=== PATIENT | female | born 1970 | race Caucasian/White ===

== ENCOUNTER → 2016-06-11 | Outpatient (CLI) | payer OTHER ==
[~2016-06-11] MED LIST: ALPR.5T PO; ASCO-262 PO; ASCO1TAB22 PO; DIAZ-345 PO; DOMPERIDONE; DOXY25TA43 PO; FLC100T1 PO; FURO40TA4 PO; GFN600TCR PO; IPRA0.2S18 IH; LEVA1.25 IH; LEVO750T6; MAGN100T3 PO; MAGN400C PO; MECL25TA56 PO; METF-380 PO; METFORMIN/GLYBURIDE; METH4TAB PO; MULT1CAP48 PO; NF-ADDXR30 PO; NFNEB10T PO; OMEG1CAP51 PO; OMEP20TA33 PO; ONDA8TAB9 PO; POTA10CA43 PO; PRAS1TAB3 PO; SCR1T1 PO; SITA1TAB6 PO; SITA50TA PO; SPIR50TA2 PO; [UNRECOGNIZED DRUG - CODE] PO
--- NOTE | 2016-06-14 11:32 | Diagnostic Imaging Report ---
EXAMINATION: Bilateral screening mammogram with a Computer Aided Detection (CAD) system. INDICATION: Screening. PERSONAL HISTORY: No current complaints stated on the questionnaire. COMPARISON: 12/01/2014. FINDINGS: The breasts are composed of scattered fibroglandular densities. There are occasional benign-appearing calcifications seen. There is a circumscribed nodule seen in the outer aspect of the right breast, better seen on the CC projection, measuring 4 mm in size. It was seen previously but has increased in size. The left breast demonstrates no change from the previous study. IMPRESSION: An enlarging 4 mm lateral right breast nodule has increased in size from the prior exam. The smooth margins are suggestive of a cyst or intramammary lymph node. Ultrasound correlation is recommended. ACR BI-RADS Category 0: Incomplete. (Needs additional imaging evaluation). Result letter will be mailed to the patient. Note: At least 10% of breast cancer is not imaged by mammography. Dictated by: Dictated on workstation # [id number]
== END ==
LOC: RAD 13:20
PROVIDERS: ATTEND Obstetrics & Gynecology
DX: Z12.31 Encounter for screening mammogram for malignant neoplasm of breast (principal)
CPT/HCPCS: 77067

== ENCOUNTER → 2016-06-21 | Outpatient (CLI) | payer OTHER ==
--- OUTSIDE RECORDS SUMMARY | 2016-06-21 08:18 | XMS REPORT | Continuity of Care Document ---
Demographics Preferred Language Unknown Marital Status Unknown Judaism Affiliation Unknown Race Unknown Ethnic Group Unknown Author Author [facility] Address Unknown Phone Unavailable Allergies Active Description Code Type Severity Reaction Onset Reported/Identified Relationship to Patient Clinical Status Yes No Known Drug Allergies [id number] Drug Allergy Unknown N/ A 05/10/2007 Medications Problems Date Dx Coded Attending Type Code Diagnosis Diagnosed By 05/13/2012 V04.81 FLU DX (3 YRS AND ABOVE, IM) 02/13/2015 SHANNON DELATORRE, CINDI Cid Ot 535.50 02/14/2015 SHANNON DELATORRE, CINDI Cid Ot 535.50 03/05/2015 SIGIFREDO DYER MD Ot R74.0 05/20/2015 ERICA YOO APRN Ot K52.9 NONINFECTIVE GASTROENTERITIS AND COLITIS 05/20/2015 ERICA YOO APRN Ot K76.0 FATTY (CHANGE OF) LIVER, NOT ELSEWHERE C 07/10/2015 JOHN DELATORRE, SASCHA Bishop Ot K64.2 THIRD DEGREE HEMORRHOIDS 07/28/2015 YULISSA REINA PICKLE CUTTER Ot E01.0 07/28/2015 SIGIFREDO DYER MD Ot Z51.81 07/28/2015 SIGIFREDO DYER MD Ot Z79.899 08/13/2015 YULISSA REINA PICKLE CUTTER Ot E01.0 08/13/2015 SIGIFREDO DYER MD Ot Z51.81 08/13/2015 SIGIFREDO DYER MD Ot Z79.899 08/20/2015 YULISSA REINA PICKLE CUTTER Ot R20.2 08/20/2015 YULISSA REINA PICKLE CUTTER Ot R20.2 08/27/2015 YULISSA REINA PICKLE CUTTER Ot R20.2 PARESTHESIA OF SKIN 06/11/2016 CINDI ORTEGA MD Ot 535.50 UNSP GASTRITIS GASTRODUODENITIS W/O ME 06/11/2016 SIGIFREDO DYER MD Ot R74.0 NONSPEC ELEV OF LEVELS OF TRANSAMNS LA 06/11/2016 SIGIFREDO DYER MD Ot K83.4 SPASM OF SPHINCTER OF ODDI 06/11/2016 YULISSA REINA Ot 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 Visit Date/Time Discharge Status Pt. Type Provider Facility Loc./Unit Complaint [id number] 05/13/2012 13:11:00 05/13/2012 23: 59:59 CLS Outpatient
--- NOTE | 2016-06-21 20:32 | Diagnostic Imaging Report ---
Right breast ultrasound. INDICATION: Asymmetry along the outer aspect of the right breast. FINDINGS: At 9:30 o'clock position 8 cm from the nipple, there is a hypoechoic lesion measuring 5 x 4 x 4 mm. It has features suggestive of an intramammary lymph node with central hyperechogenicity likely related to the fatty hilum. IMPRESSION: 5 mm nodule appears to correspond with mammographic abnormality at 9:30 o'clock position, 8 cm from the nipple is likely related to an intramammary lymph node. A six-month followup ultrasound is recommended to ensure stability. ACR BI-RADS Category 3: Probably benign findings. Dictated by: Dictated on workstation # [id number]
== END ==
LOC: RAD 08:15
PROVIDERS: ATTEND Obstetrics & Gynecology
DX: R92.2 Inconclusive mammogram (principal); N63 Unspecified lump in breast

== ENCOUNTER → 2016-07-01 | Outpatient (CLI) | payer OTHER ==
[~2016-07-01] VITALS: Ht 162.6 cm; Wt 90.7 kg
[~2016-07-01] MED LIST changes: +LACTATED RINGERS 2,000 ML IV SCH; +ONDANSETRON 4 MG/2 ML (SDV) Z0FRAN IV ONE
--- OUTSIDE RECORDS SUMMARY | 2016-07-01 12:24 | XMS REPORT | Continuity of Care Document ---
Demographics Preferred Language Unknown Marital Status Unknown Anabaptism Affiliation Unknown Race Unknown Ethnic Group Unknown Author Author [facility] Address Unknown Phone Unavailable Allergies Active Description Code Type Severity Reaction Onset Reported/Identified Relationship to Patient Clinical Status Yes No Known Drug Allergies [id number] Drug Allergy Unknown N/ A 05/10/2007 Medications [...] K64.2 THIRD DEGREE HEMORRHOIDS 07/28/2015 YULISSA REINA SHELLFISH PROCESSING MACHINE TENDER Ot E01.0 07/28/2015 SIGIFREDO DYER MD Ot Z51.81 07/28/2015 SIGIFREDO DYER MD Ot Z79.899 08/13/2015 YULISSA REINA SHELLFISH PROCESSING MACHINE TENDER Ot E01.0 08/13/2015 SIGIFREDO DYER MD Ot Z51.81 08/13/2015 SIGIFREDO DYER MD Ot Z79.899 08/20/2015 YULISSA REINA SHELLFISH PROCESSING MACHINE TENDER Ot R20.2 08/20/2015 YULISSA REINA SHELLFISH PROCESSING MACHINE TENDER Ot R20.2 08/27/2015 YULISSA REINA SHELLFISH PROCESSING MACHINE TENDER Ot R20.2 PARESTHESIA OF SKIN 06/11/2016 CINDI ORTEGA MD Ot 535.50 UNSP GASTRITIS GASTRODUODENITIS W/O ME 06/11/2016 SIGIFREDO DYER MD Ot R74.0 NONSPEC ELEV OF LEVELS OF TRANSAMNS LA 06/11/2016 SIGIFREDO YDER MD Ot K83.4 SPASM OF SPHINCTER OF ODDI 06/11/2016 YULISSA REINA Ot 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 06/11/2016 SIGIFREDO DYER MD Ot Z51.81 ENCOUNTER FOR THERAPEUTIC DRUG LEVEL MON 06/11/2016 SIGIFREDO DYER MD Ot Z79.899 OTHER RETIREMENT (CURRENT) DRUG THERAPY 06/11/2016 YULISSA REINA Ot R20.2 PARESTHESIA OF SKIN 06/11/2016 YULISSA REINA Ot K76.0 FATTY (CHANGE OF) LIVER, NOT ELSEWHERE C 06/11/2016 YULISSA REINA Ot R74.8 ABNORMAL LEVELS OF OTHER SERUM ENZYMES 06/14/2016 NEIL DELGADO MD, Ot Z12.31 ENCNTR SCREEN MAMMOGRAM FOR MALIGNANT NE 06/14/2016 NEIL DELGADO MD, Ot Z12.31 ENCNTR SCREEN MAMMOGRAM FOR MALIGNANT NE 06/22/2016 NEIL DELGADO MD Ot N63 UNSPECIFIED LUMP IN BREAST 06/22/2016 NEIL DELGADO MD, Ot R92.2 INCONCLUSIVE MAMMOGRAM 06/23/2016 NEIL DELGADO MD, Ot Z12.31 ENCNTR SCREEN MAMMOGRAM FOR MALIGNANT NE Procedures Results Encounters ACCT No. Visit Date/Time Discharge Status Pt. Type Provider Facility Loc./Unit Complaint [id number] 05/13/2012 13:11:00 05/13/2012 23: 59:59 CLS Outpatient
[2016-07-01 12:42] LABS: RED BLOOD COUNT 4.42 10^6/uL (4.35-5.85); WHITE BLOOD COUNT 8.5 10^3/uL (4.3-11.0)
--- NOTE | 2016-07-01 12:54 | Diagnostic Imaging Report ---
INDICATION: Gastroparesis. FINDINGS: Stomach is not distended. Small bowel is not dilated. The colon shows normal stool and gas pattern with no evidence of constipation. Surgical clips are in the biliary fossa. No pathologic calcification. IMPRESSION: Normal KUB. Dictated by: Dictated on workstation # [id number]
[2016-07-01 13:04] LABS: ALANINE AMINOTRANSFERASE 82 U/L (0-55); ALBUMIN 4.1 G/DL (3.2-4.5); AMYLASE 22 U/L (25-125); ANION GAP 15 MMOL/L (5-14); ASPARTATE AMINO TRANSFERASE 52 U/L (5-34); BLOOD UREA NITROGEN 13 MG/DL (7-18); BUN/CREATININE RATIO 13; CALCIUM 8.5 MG/DL (8.5-10.1); CARBON DIOXIDE 18 MMOL/L (21-32); CHLORIDE 101 MMOL/L (98-107); CREATININE SERUM 0.99 MG/DL (0.60-1.30); GFR ESTIMATED > 60; GLUCOSE 398 MG/DL (70-105); LIPASE 33 U/L (8-78); POTASSIUM 3.7 MMOL/L (3.6-5.0); SODIUM 134 MMOL/L (135-145); TOTAL PROTEIN 7.2 G/DL (6.4-8.2)
[2016-07-01 13:52] VITALS: BP 129/88
[2016-07-01 18:10] VITALS: BP 129/88
== END ==
LOC: RAD 12:19
PROVIDERS: ATTEND Internal Medicine
DX: K31.84 Gastroparesis (principal); E86.0 Dehydration; R10.13 Epigastric pain
CPT/HCPCS: 36415; 74020; 80053; 82150; 83690; 85027; 96360; 96361; 96374

== ENCOUNTER → 2016-12-07 | Outpatient (CLI) | payer OTHER ==
[~2016-12-07] VITALS: Ht 162.6 cm; Wt 90.3 kg
[~2016-12-07] MED LIST changes: +CATHETER FLUSH 10 ML SYR IV PRN; +KETOROLAC 30 MG/ML VIAL IV ONE; +KETOROLAC 30 MG/ML VIAL ONE; +LACTATED RINGERS 1,000 ML IV ONE; -LACTATED RINGERS 2,000 ML IV SCH; +ONDANSETRON 4 MG/2 ML (SDV) Z0FRAN ONE; +cefTRIAXone 1 GM/NS 50 ML IVPB IV ONE
[2016-12-07 12:35] VITALS: BP 126/78
[2016-12-07] MEDS: MAGNESIUM 1 GM/D5W 100 ML IVPB IV SCH ×2 (13:10→14:00)
== END ==
LOC: SDC 10:56
PROVIDERS: ATTEND Internal Medicine
DX: E86.0 Dehydration (principal); J01.90 Acute sinusitis, unspecified; R11.0 Nausea; E83.42 Hypomagnesemia
CPT/HCPCS: 96361; 96365; 96366; 96367; 96375

== ENCOUNTER → 2016-12-28 | Outpatient (CLI) | payer OTHER ==
[~2016-12-28] MED LIST changes: -CATHETER FLUSH 10 ML SYR IV PRN; -KETOROLAC 30 MG/ML VIAL IV ONE; -KETOROLAC 30 MG/ML VIAL ONE; -LACTATED RINGERS 1,000 ML IV ONE; -ONDANSETRON 4 MG/2 ML (SDV) Z0FRAN IV ONE; -ONDANSETRON 4 MG/2 ML (SDV) Z0FRAN ONE; -cefTRIAXone 1 GM/NS 50 ML IVPB IV ONE
--- NOTE | 2016-12-28 20:27 | Diagnostic Imaging Report ---
EXAMINATION: Ultrasound of the right breast limited. INDICATION: Follow-up exam. FINDINGS: The baseline screening mammogram performed on 06/11/2016 suggested a 4 mm enlarging nodule in the lateral aspect of the right breast. This nodule had a generally benign mammographic appearance. The ultrasound exam performed on 06/21/2016 indicated that there was a 5 x 4 x 4 mm hypoechoic nodule with a hyperechoic center in this region. This finding had the appearance of a benign lymph node. On this exam, the suspected lymph node is again evident and no different. I do feel that this is a benign process; however, I would recommend that this are be reevaluated by ultrasound when the patient has her annual bilateral mammogram in June of 2017. IMPRESSION: 1. The suspected lymph node in the lateral aspect of the right breast seen previously is again evident and does not appear to have changed significantly. Recommendations as above. 2. There is no evidence of malignancy. ACR BI-RADS Category 3: Probably benign findings. Dictated by: Dictated on workstation # [id number]
== END ==
LOC: RAD 10:49
PROVIDERS: ATTEND Obstetrics & Gynecology
DX: R59.0 Localized enlarged lymph nodes (principal)

== ENCOUNTER → 2017-04-22 | Outpatient (CLI) | payer OTHER ==
[~2017-04-22] MED LIST changes: +CATHETER FLUSH 10 ML SYR IV PRN
[2017-04-22 08:07] VITALS: BP 130/85
[2017-04-22 08:23] VITALS: BP 153/117
[2017-04-22 08:26] VITALS: BP 169/97
[2017-04-22 08:28] VITALS: BP 165/96
[2017-04-22 08:30] VITALS: BP 140/100
--- NOTE | 2017-04-22 21:23 | STRESS TEST ---
DATE OF SERVICE: 04/22/2017 MYOCARDIAL PERFUSION IMAGING PRIMARY PHYSICIAN: Dr. Clemons. DIAGNOSIS: Chest pain. PROCEDURE DETAILS: Please review Dr. Cleomns's note on the stress testing. Myoview 9.89 mCi were given for rest imaging and 30.0 mCi of Myoview were given for stress imaging. TID was 0.73 and EF of 59%. No wall motion abnormalities. Normal perfusion during stress and rest imaging. IMPRESSION/CONCLUSION: Normal perfusion during rest and stress imaging. There is no evidence of infarct or ischemia. Job ID: [id number] DocumentID: [id number] Dictated Date: 04/22/2017 16:15:56 Sand Plant Attendant Date: 04/22/2017 19:53:31 Dictated By: STEPHEN CORONADO MD
== END ==
LOC: CARD 07:14
PROVIDERS: ATTEND Internal Medicine
DX: R07.9 Chest pain, unspecified (principal)
CPT/HCPCS: 78452; 93017

== ENCOUNTER → 2017-08-18 | Outpatient (CLI) | payer OTHER ==
[~2017-08-18] MED LIST changes: -CATHETER FLUSH 10 ML SYR IV PRN
--- NOTE | 2017-08-18 11:48 | Diagnostic Imaging Report ---
INDICATION: Right breast nodule. Patient presents for followup. Correlation is made with prior right breast ultrasound from 12/28/2016 and 06/21/2016. Sonographic interrogation of the outer right breast was performed. Previously noted circumscribed hypoechoic nodule at the 9:30 location 8 cm from the nipple is again noted measuring 5 mm x 4 mm x 6 mm. This is stable. This has benign features. No internal vascularity is seen. No additional lesion is identified. IMPRESSION: Stable circumscribed hypoechoic nodule 9:30 location of the right breast when compared with examinations dating back to 06/21/2016. 14 months of stability is reassuring. Even so, followup right breast ultrasound in 6 months recommended to show continued stability. BI-RADS category 3 ACR BI-RADS Category 3: Probably benign findings. Dictated by: Dictated on workstation # [id number]
--- NOTE | 2017-08-18 13:13 | Diagnostic Imaging Report ---
INDICATION: Right breast nodule. Correlation is made with prior mammogram from 06/11/2016. The current study was also evaluated with a Computer Aided Detection (CAD) system. Scattered fibronodular densities are identified bilaterally. Nodular density outer right breast appears stable. This was stable on ultrasound performed earlier the same day. No new mass or malignant appearing microcalcifications are identified. The axillae are unremarkable. IMPRESSION: BI-RADS category 3 Stable bilateral mammograms. Patient is scheduled to undergo six-month followup ultrasound of the right breast to confirm stability of the well-defined nodule in the outer aspect. ACR BI-RADS Category 3: Probably benign findings. Result letter will be mailed to the patient. Note: At least 10% of breast cancer is not imaged by mammography. Dictated by: Dictated on workstation # [id number]
== END ==
LOC: RAD 10:49
PROVIDERS: ATTEND Obstetrics & Gynecology
DX: N63.11 Unspecified lump in the right breast, upper outer quadrant (principal)
CPT/HCPCS: 77067

== ENCOUNTER → 2018-02-09 | Outpatient (CLI) | payer OTHER ==
[~2018-02-09] MED LIST changes: -SPIR50TA2 PO; +SPIR50TA4 PO
--- NOTE | 2018-02-09 18:58 | Diagnostic Imaging Report ---
INDICATION: Six-month followup of right breast nodule. COMPARISON: Correlation is made with prior right breast ultrasound from 08/18/2017. EXAMINATION: Sonographic interrogation of the right breast at the 9:30 location, 8 cm from the nipple, was performed. FINDINGS: There is a circumscribed hypoechoic nodule at this location, measuring 6 mm x 4 mm x 5 mm, stable when compared to the prior exam. No new mass is seen. IMPRESSION: BI-RADS 3. Stable circumscribed hypoechoic nodule at the 9:30 location of the right breast. This now shows approximately 20 months of stability. One final sonographic followup in six months is recommended to confirm stability. Dictated by: Dictated on workstation # [id number]
== END ==
LOC: RAD 14:06
PROVIDERS: ATTEND Obstetrics & Gynecology
DX: N63.11 Unspecified lump in the right breast, upper outer quadrant (principal); R92.8 Other abnormal and inconclusive findings on diagnostic imaging of breast

== ENCOUNTER → 2018-08-17 | Outpatient (CLI) | payer OTHER ==
--- NOTE | 2018-08-17 20:33 | Diagnostic Imaging Report ---
EXAMINATION: Diagnostic mammogram. The current study was also evaluated with a Computer Aided Detection (CAD) system. CLINICAL INDICATION: Six-month follow-up. Comparison made with prior examination from 08/18/2017 back through 11/30/2007. FINDINGS: There are scattered fibroglandular densities bilaterally. There is an unchanged nodular density in the lateral right breast. There are a few benign-type calcifications. There is no new dominant mass, spiculated lesion, or suspicious calcification identified. The skin, nipples, and axillae are unremarkable. Ultrasound was repeated of the nodule in the right breast which was unchanged. IMPRESSION: Benign. ACR BI-RADS Category 2: Benign findings. Result letter will be mailed to the patient. Note: At least 10% of breast cancer is not imaged by mammography. Dictated by: Dictated on workstation # [id number]
--- NOTE | 2018-08-17 20:40 | Diagnostic Imaging Report ---
INDICATION: Six-month follow-up. Comparison made with prior examination from 02/09/2018. TECHNIQUE: Multiple real-time grayscale images were obtained over the right breast in various projections. FINDINGS: In the 9:30 position of the right breast 8 cm from the nipple, there is an unchanged hypoechoic density measuring 0.6 x 0.4 x 0.5 cm. Additionally, in the 10 o'clock position, there is a tiny 3 mm cyst. IMPRESSION: Benign. Stable hypoechoic density in the 9:30 position of the right breast. This documents two-year stability. 3 mm benign-appearing cyst in the 10:30 position of the right breast. ACR BI-RADS Category 2: Benign findings. Dictated by: Dictated on workstation # [id number]
== END ==
LOC: RAD 13:14
PROVIDERS: ATTEND Obstetrics & Gynecology
DX: N63.11 Unspecified lump in the right breast, upper outer quadrant (principal)
CPT/HCPCS: 77066

== ENCOUNTER → 2019-10-23 | Outpatient (CLI) | payer OTHER ==
--- NOTE | 2019-10-23 14:50 | Diagnostic Imaging Report ---
INDICATION: Routine screening. COMPARISON is made with prior mammograms from 08/17/2018 and 08/18/2017. 2-D and 3-D bilateral screening mammography was performed with CAD. Scattered fibroglandular densities are identified bilaterally. Circumscribed nodule in the upper outer right breast is stable. No new mass or malignant appearing microcalcifications are identified. Axillae are unremarkable. IMPRESSION: BI-RADS Category 2 No mammographic features suspicious for malignancy are identified. ACR BI-RADS Category 2: Benign findings. Result letter will be mailed to the patient. Note: At least 10% of breast cancer is not imaged by mammography. Dictated by: Dictated on workstation # [id number]
== END ==
LOC: RAD 12:23
PROVIDERS: ATTEND Obstetrics & Gynecology
DX: Z12.31 Encounter for screening mammogram for malignant neoplasm of breast (principal)
CPT/HCPCS: 77063; 77067

== ENCOUNTER → 2020-10-23 | Outpatient (CLI) | payer OTHER ==
--- NOTE | 2020-10-24 08:48 | Diagnostic Imaging Report ---
INDICATION: Routine screening. COMPARISON is made with prior mammograms from 10/23/2019 and 08/17/2018. 2-D and 3-D bilateral screening mammography was performed with CAD. Scattered fibroglandular densities are identified bilaterally. A benign nodule in the lateral right breast is stable. No new mass or malignant appearing microcalcifications are identified. There are occasional benign calcifications noted. Axillae are unremarkable. IMPRESSION: BI-RADS Category 2 No mammographic features suspicious for malignancy are identified. ACR BI-RADS Category 2: Benign findings. Result letter will be mailed to the patient. Note: At least 10% of breast cancer is not imaged by mammography. Dictated by: Dictated on workstation # [id number]
== END ==
LOC: RAD 14:48
PROVIDERS: ATTEND Obstetrics & Gynecology
DX: Z12.31 Encounter for screening mammogram for malignant neoplasm of breast (principal)
CPT/HCPCS: 77063; 77067

== ENCOUNTER 2021-05-07 05:28 | Outpatient (RCR) | payer OTHER ==
[~2021-05-07] VITALS: Ht 162.6 cm; Wt 97.4 kg
[~2021-05-07 05:28] MED LIST changes: +ALPR1TAB7 PO; +BUSP5TAB59 PO; +BUTA-235 PO; +DAPA5TAB PO; +DEXT10CA PO; +EZET10TA49 PO; +INSU100I32 SQ; +METF-399 PO; +NORT25CA PO; +PROP20TA5 PO; +SEMA3TAB PO; +SULF-11 PO; +THYR60TA27 PO; +TRIA1CAP4 PO
== END 2021-05-07 08:59 | disposition home or self-care (01) ==
LOC: PREOP 05:28
PROVIDERS: ATTEND Surgery
DX: Z01.812 Encounter for preprocedural laboratory examination (principal); K62.5 Hemorrhage of anus and rectum; Z20.822 Contact with and (suspected) exposure to COVID-19
CPT/HCPCS: 87635

== ENCOUNTER → 2021-05-11 | Day surgery (SDC) | payer OTHER ==
[~2021-05-11] VITALS: Ht 162.6 cm; Wt 79.4 kg
[~2021-05-11] MED LIST changes: +HURRICAINE EXT TUBE (BENZOCAINE) XX PRN; +LACTATED RINGERS 1,000 ML IV ONE; +LACTATED RINGERS 1,000 ML IV STA; +MIDAZOLAM 2 MG/2 ML (VERSED) VIAL ONE; +PROPOFOL INJECTION 50 ML IV ONE
[2021-05-11 08:15] VITALS: BP 126/89
--- NOTE | 2021-05-11 08:58 | Progress Note-Pre Operative ---
Pre-Operative Progress Note H&P Reviewed The H&P was reviewed, patient examined and no changes noted. Time Seen by Provider: 08:57 Date H&P Reviewed: May 11, 2021 Time H&P Reviewed: 08:57 Pre-Operative Diagnosis: Rectal bleed, Chronic Gastritis DAVID HERNANDEZ DO May 11, 2021 08:58
[2021-05-11 10:15] VITALS: BP 109/63
[2021-05-11 10:20] VITALS: BP 103/87
--- NOTE | 2021-05-11 10:27 | Anesthesia-General Post-Op ---
MAC Patient Condition Mental Status/LOC: Same as Preop Cardiovascular: Satisfactory Nausea/Vomiting: Absent Respiratory: Satisfactory Pain: Controlled Complications: Absent Post Op Complications Complications None Follow Up Care/Instructions Patient Instructions None needed. Anesthesiology Discharge Order Discharge Order Patient is doing well, no complaints, stable vital signs, no apparent adverse anesthesia problems. No complications reported per nursing. VALENTIN ASHTON CRNA May 11, 2021 10:27
--- NOTE | 2021-05-11 10:29 | Progress Note-Post Operative ---
Post-Operative Progess Note Surgeon (s)/Civil Engineering Specialist (s) Surgeon DAVID HERNANDEZ DO Civil Engineering Specialist: Sanford Mccord, MSITahir Pre-Operative Diagnosis Rectal bleed, Chronic Gastritis Post-Operative Diagnosis Gsatritis Esophagitis Polyp int and ext hemorrhoids Procedure & Operative Findings Date of Procedure 05/11/21 Procedure Performed/Findings EGD with biopsy Colon with snare polypectomy PROCEDURE NOTE: After informed consent was obtained, the patient was brought to the endoscopy suite, placed in bed in left lateral decubitus position. She was administered IV sedation by the LANDSCAPE ARCHITECTURE TEACHER who then monitored vitals the entire time, heart rate, blood pressure and pulse ox and the scope was inserted down the mouth through the esophagus into the stomach. On the way down, noted some mild esophagitis, took a picture, pushed into the stomach, pushed past the antrum into the duodenum. Duodenum looked good. Pulled back and did a biopsy of antrum, then retroflexed the scope, did not see a hiatal hernia and then pulled the scope into the GE junction and did a biopsy of the GE junction. Pushed the scope back into the stomach, suctioned all the air out of the stomach. At this point pulled the scope up the esophagus and out the mouth. Switched camera, switched gloves, went down below and started the colonoscopy. Pushed all the way into about 140 cm to get all the way to cecum. There was a large polyp right next to the ileocecal valve and took a picture. Elected to do a hot snare to completely remove the polyp, tryied to take a picture of the appendiceal orifice. However, the polyp and stool blocked visualization. Had to use a net to grab the polyp and then slowly withdrew the scope, insufflating to look circumferentially at the ray starting in the cecum, up the ascending colon to the hepatic flexure, then down the transverse colon, splenic flexure, into the descending colon, down into the sigmoid and finally into the rectum, retroflexed in the rectal vault, saw some minimal internal hemorrhoids and took a picture of this. Also took a picture of the external hemorrhoidal skin as well. The patient tolerated the procedure and she recovered in the endoscopy suite. Anesthesia Type IV sedation by LANDSCAPE ARCHITECTURE TEACHER Estimated Blood Loss Estimated blood loss (mL): scant Specimens/Packing Specimens Removed antral bx body of stomach bx GE jxn bx Cecal polyp DAVID HERNANDEZ DO May 11, 2021 10:29
--- NOTE | 2021-05-11 10:30 | Endoscopy Discharge Instruct ---
Endo Procedure/Findings Findings 1.: Gastritis 2.: Polyp 3.: Internal Hemorrhoids 4.: Other Findings (external hemorrhoidal skin) Discharge Instructions - Activity: You might feel a little sleepy until tomorrow. This is due to the medicine you received to relax you. Until tomorrow, you should: NOT drive a car, operate machinery or power tools. NOT drink any alcoholic beverages. NOT make any important decisions or sign importortant papers. Do not return to work until tomorrow, unless otherwise instructed. Resume previous activities tomorrow. Diet: Start by taking liquids. If you tolerate liquids, advance to solid food. 1.: Colonscopy in 3 years 2.: EGD in 3 years Notify Physician - If you experience excessive bleeding, unusual abdominal pain, fever, or chest pain, contact your doctor immediately. DAVID HERNANDEZ DO May 11, 2021 10:30
[2021-05-11 10:51] VITALS: BP 121/83
== END ==
LOC: ENDO 07:55
PROVIDERS: ATTEND Surgery
DX: K29.50 Unspecified chronic gastritis without bleeding (principal); K21.00 Gastro-esophageal reflux disease with esophagitis, without bleeding; D12.0 Benign neoplasm of cecum; K64.4 Residual hemorrhoidal skin tags; K62.5 Hemorrhage of anus and rectum; K64.8 Other hemorrhoids; R63.4 Abnormal weight loss; E11.9 Type 2 diabetes mellitus without complications; F32.A Depression, unspecified; F90.9 Attention-deficit hyperactivity disorder, unspecified type; Z79.891 Long term (current) use of opiate analgesic; Z79.899 Other long term (current) drug therapy; Z90.49 Acquired absence of other specified parts of digestive tract; Z79.84 Long term (current) use of oral hypoglycemic drugs; Z80.9 Family history of malignant neoplasm, unspecified
CPT/HCPCS: 84703

== ENCOUNTER → 2021-11-24 | Outpatient (CLI) | payer OTHER ==
[~2021-11-24] MED LIST changes: -HURRICAINE EXT TUBE (BENZOCAINE) XX PRN; -LACTATED RINGERS 1,000 ML IV ONE; -LACTATED RINGERS 1,000 ML IV STA; -MIDAZOLAM 2 MG/2 ML (VERSED) VIAL ONE; -PROPOFOL INJECTION 50 ML IV ONE; -SEMA3TAB PO; +SEMA3TAB4 PO; -TRIA1CAP4 PO; +TRIA1CAP84 PO
--- NOTE | 2021-11-24 13:04 | Diagnostic Imaging Report ---
INDICATION: Routine screening. COMPARISON: 10/23/2020 and 10/23/2019. TECHNIQUE: 2D and 3D bilateral screening mammography was performed with CAD. FINDINGS: Scattered fibroglandular densities are identified bilaterally. A benign nodule in the upper outer right breast is stable. No new mass or malignant-appearing microcalcifications are seen. The axillae are unremarkable. IMPRESSION: No mammographic features suspicious for malignancy are identified. ACR BI-RADS Category 2: Benign findings. Result letter will be mailed to the patient. Note: At least 10% of breast cancer is not imaged by mammography. Dictated by: Dictated on workstation # [id number]
== END ==
LOC: RAD 09:15
PROVIDERS: ATTEND Obstetrics & Gynecology
DX: Z12.31 Encounter for screening mammogram for malignant neoplasm of breast (principal)
CPT/HCPCS: 77063; 77067

== ENCOUNTER → 2022-05-04 | Outpatient (CLI) | payer OTHER ==
--- NOTE | 2022-05-04 13:12 | Diagnostic Imaging Report ---
INDICATION: Postmenopausal screening COMPARISON: None FINDINGS: AP Spine L1-L4: [BMD (g/cm2): 1.441] [T-Score: 2.0] [Z-Score: 2.1] [BMD Previous: NA] [BMD % Change: NA] LT Hip Neck: [BMD (g/cm2): 1.031] [T-Score: -0.1] [Z-Score: 0.5] LT Hip Total: [BMD (g/cm2):1.119] [T-Score:0.9] [Z-Score: 1.1] [BMD Previous: NA] [BMD % Change: NA] RT Hip Neck: [BMD (g/cm2):1.041] [T-Score:0.0] [Z-Score:0.6] RT Hip Total: [BMD (g/cm2):1.088] [T-score:0.6] [Z-Score:0.9] [BMD Previous:NA] [BMD % Change:NA] *Indicates significant change from prior examination based on 95% confidence level. World Health Organization criteria for BMD interpretation classify patients as Normal (T-score at or above -1.0), Osteopenic (T-score between -1.0 and -2.5) or Osteoporotic (T-score at or below -2.5). LIMITATIONS AND MODIFICATION: None. FRACTURE RISK (FRAX SCORE): The ten year probability of (%): Major Osteoporotic Fracture: [NA] Hip Fracture: [NA] IMPRESSION: 1. Normal bone mineral density. 2. Baseline examination. 3. See below National Osteoporosis Foundation guidelines on when to potentially initiate pharmacologic therapy. Based on the National Osteoporosis Foundation Guidelines, pharmacologic treatment should be initiated in any of the following, unless clinical conditions suggest otherwise: * Any patient with prior fragility fracture of the hip or vertebrae. A spine fracture indicates 5X risk for subsequent spine fracture and 2X risk for subsequent hip fracture. * Osteoporosis (T-score <-2.5). * Postmenopausal women and men age 50 and older with low bone mass/osteopenia (T-score between -1.0 and -2.5) by DXA and 10-year major osteoporotic fracture greater than 20% or a 10-year probability of hip fracture greater than 3%. These fracture risks are supplied above in the FRAX score, if applicable. * Clinician judgement and/or patient preferences may indicate treatment for people with 10-year fracture probabilities above or below these levels. Dictated by: Dictated on workstation # [id number]
== END ==
LOC: RAD 10:56
PROVIDERS: ATTEND Obstetrics & Gynecology
DX: Z13.820 Encounter for screening for osteoporosis (principal); Z78.0 Asymptomatic menopausal state
CPT/HCPCS: 77080

== ENCOUNTER → 2023-04-07 | Outpatient (CLI) | payer OTHER ==
--- NOTE | 2023-04-07 15:52 | Diagnostic Imaging Report ---
INDICATION: Routine screening. COMPARISON: 11/24/2021 and 10/23/2020. TECHNIQUE: 2D and 3D bilateral screening mammography was performed with CAD. FINDINGS: Scattered fibroglandular densities are identified bilaterally. The benign nodule in the right breast is stable. No new mass or malignant-appearing microcalcifications are identified. Axillae are unremarkable. IMPRESSION: No mammographic features suspicious for malignancy are identified. ACR BI-RADS Category 2: Benign findings. Result letter will be mailed to the patient. Note: At least 10% of breast cancer is not imaged by mammography. Dictated by: Dictated on workstation # [id number]
== END ==
LOC: RAD 11:30
PROVIDERS: ATTEND Obstetrics & Gynecology
DX: Z12.31 Encounter for screening mammogram for malignant neoplasm of breast (principal)
CPT/HCPCS: 77063; 77067